=== PATIENT | male | born 1975 | race Caucasian/White ===

== ENCOUNTER 2018-03-14 11:44 | Emergency (ER) | payer OTHER, SELFPAY ==
[2018-03-14 11:45] VITALS: BP 140/100; PULSE 83; RESP 18; TEMP 36.4; O2SAT 97; BMI 28.5
--- NOTE | 2018-03-14 13:04 | ED.VISSUMM ---
- ER Visit Summary Date of Service: 03/14/18 Chief Complaint: Neck pain History of Present Illness: The patient is a 42 M history of arthritis in his neck. Was told by another physician at another facility that he would need cervical spine surgery which she has never had done. States the last week he has had pain base of his right neck radiating to his right arm. Denies any numbness or weakness. No bowel or bladder incontinence. No fever. No falls or trauma. Physical Examination: Well-appearing middle-age male. Vital signs stable afebrile. H EENT exam unremarkable. Trachea midline. No lymphadenopathy. His tenderness and base of the C-spine. Also along his right trapezius muscle consistent with muscle spasm. Both upper extremities neurovascular intact. His 5 5 shipsmith strength. Equal symmetrical radial pulses. Normal touch sensation. I do not see any muscular atrophy. Lungs clear to auscultation bilaterally. Heart regular rhythm no murmur. Abdomen soft nontender. He is moving all 4 extremities. Neurovascularly intact. There is no weakness or loss of sensation to the right upper extremity. He is able to flex and extend his neck. Also rotate the right and left. He has some discomfort but is able to do it. Neurologic exam unremarkable. No weakness or numbness in upper or lower extremities. No cauda equina. Test Results: None Emergency Department Course and Treatment: Patient most likely has underlying degenerative disc disease of the C-spine. He does not need any emergent imaging. He will need follow-up with orthopedic spine and most like an MRI of his neck. Treatment Plan: [place] for pain. Continue anti-inflammatories. Disposition: Discharge Impression: Acute on chronic neck pain with muscle spasm Degenerative disc disease cervical spine This note was generated with Odeo dictation software. It may contain incorrect words, spelling, and punctuation that were not noted in review of the chart prior to signing ED Disposition - Plan for ED Patient: Chief Complaint: Other, Pain/Inj Referrals: Nadeem Mahmood MD [Primary Care Provider] -
--- NOTE | 2018-03-14 13:08 | ED.DCSUM_ITS ---
- ER Visit Summary Date of Service: 03/14/18 Chief Complaint: Neck pain History of Present Illness: The patient is a 42 M history of arthritis in his neck. Was told by another physician at another facility that he would need cervical spine surgery which she has never had done. States the last week he has had pain base of his right neck radiating to his right arm. Denies any numbness or weakness. No bowel or bladder incontinence. No fever. No falls or trauma. Physical Examination: Well-appearing middle-age male. Vital signs stable afebrile. H EENT exam unremarkable. Trachea midline. No lymphadenopathy. His tenderness and base of the C-spine. Also along his right trapezius muscle consistent with muscle spasm. Both upper extremities neurovascular intact. His 5 5 gunner's mate g strength. Equal symmetrical radial pulses. Normal touch sensation. I do not see any muscular atrophy. Lungs clear to auscultation bilaterally. Heart regular rhythm no murmur. Abdomen soft nontender. He is moving all 4 extremities. Neurovascularly intact. There is no weakness or loss of sensation to the right upper extremity. He is able to flex and extend his neck. Also rotate the right and left. He has some discomfort but is able to do it. Neurologic exam unremarkable. No weakness or numbness in upper or lower extremities. No cauda equina. Test Results: None Emergency Department Course and Treatment: Patient most likely has underlying degenerative disc disease of the C-spine. He does not need any emergent imaging. He will need follow-up with orthopedic spine and most like an MRI of his neck. Treatment Plan: [place] for pain. Continue anti-inflammatories. Disposition: Discharge Impression: Acute on chronic neck pain with muscle spasm Degenerative disc disease cervical spine This note was generated with VeriTran dictation software. It may contain incorrect words, spelling, and punctuation that were not noted in review of the chart prior to signing ED Disposition - Plan for ED Patient: Chief Complaint: Other, Pain/Inj Referrals: Nadeem Mahmood MD [Primary Care Provider] -
--- NOTE | 2018-03-14 13:08 | ED.DEP ---
ED Disposition - Plan for ED Patient: Disposition: Home or Assisted Living Chief Complaint: Other, Pain/Inj Prescriptions: Hydrocodone/Acetaminophen [[place] 10-325 Tablet] 1 ea PO Q4H PRN PRN #20 tab PRN Reason: Pain Referrals: Nadeem Mahmood MD [Primary Care Provider] - As soon as possible Additional Instructions: Continue Motrin for pain and inflammation. [place] for more severe pain. Need to follow-up with primary care physician you will need a MRI of your cervical spine and then referred to an orthopedic applications support specialist or a neurosurgeon.
[2018-03-14] MEDS: HYDROcodone Bitartrate/Apap 5/325 Tablet PO (13:10)
--- NOTE | 2018-03-14 13:12 | DCINST.ED_ITS ---
ED Disposition - Plan for ED Patient: Disposition: Home or Assisted Living Chief Complaint: Other, Pain/Inj Prescriptions: Hydrocodone/Acetaminophen [[place] 10-325 Tablet] 1 ea PO Q4H PRN PRN #20 tab PRN Reason: Pain Referrals: Nadeem Mahmood MD [Primary Care Provider] - As soon as possible Additional Instructions: Continue Motrin for pain and inflammation. [place] for more severe pain. Need to follow-up with primary care physician you will need a MRI of your cervical spine and then referred to an orthopedic cannon fire direction specialist or a neurosurgeon.
== END 2018-03-14 13:53 | disposition home or self-care (01) ==
PROVIDERS: Emergency Provider Emergency Medicine
DX: M50.30 Other cervical disc degeneration, unspecified cervical region (principal); M62.838 Other muscle spasm; G89.29 Other chronic pain; Z72.0 Tobacco use
CPT/HCPCS: 99283

== ENCOUNTER 2018-04-26 11:30 | Outpatient (RCR) | payer OTHER, SELFPAY ==
--- NOTE | 2018-04-12 17:23 | HP.PTEVAL_ITS ---
Patient's Visit Information DUSTIN REY Jr. is a 42 year old M referred to Physical Therapy by Cecile Ferrer MD with a diagnosis of CERVICAL RADICULOPATHY. Date of Evaluation: 04/12/18 Physical Therapist: José Miguel Mcadams PT, - Visit Plan Frequency: 2x /Week Duration: 4 Weeks Plan: MODALTIES US/MHP/CP ICTX 15#-22 # X15 MIN ,MANUAL THERAPY STM/MANUAL TRACTION,POSTURAL EX'S,CERVICAL ROM - Subjective Subjective: This 42 y/o male presents to physical therapy with cervical radiculopathy . Patient has had cervical pain for 10 years. Patient has been [place] 6 years , patient care of DR and seen neurosurgeon recommended cercvical surgery. Patient had PT ,tried pain managemnt and chiropractor and had MRI spurs bone,stenosis and HNP in [place]. Patient has right cervical pain with radiculopathy right arm to wrist . Patient has MONTOYA,denies tinnutus,nausea.Symptoms worse woth work ,lifting [place] ,turn cervcial,flexing neck. Symptoms better with rest.Patient sleeping okay.Patient injuried cervical spine lifting 300 #. 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 SOCIAL: maried - Pain Right Neck Pain Intensity (Out of 10): 5 Pain Intensity Range: 10 Left Elbow Pain Intensity (Out of 10): 7 Pain Intensity Range: 10 - Objective POSTURE: rounded shoulders head foward. NEURO: denies parathesia/tingling,reflexes C5-6-7 1/3. AROM: BUE WFL. MMT: 4/5 except 4-/5 wrist flexors /extensors. CERVICAL ROM: flexion mod loss pain,rotation/lateral flexion mod loss,extension mod loss. PALPATION: tender UT/levator - Special Tests C/S Radiculapathy - Left Upper limb tension test: Negative C/S Radiculapathy - Right Upper limb tension test: Negative C/S Radiculapathy - Left Spurlings: Positive C/S Radiculapathy - Right Spurlings: Positive C/S Radiculapathy - Left Cervical distraction: Negative C/S Radiculapathy - Right Cervical distraction: Negative Cervical Sitting: Protrusion - Mechanical Response: No effect Cervical Sitting: Protrusion - Symptoms During Testing: Increases Cervical Sitting: Protrusion - Symptoms After Testing: Worse Cervical Sitting: Retraction - Mechanical Response: No effect Cervical Sitting: Retraction - Symptoms During Testing: Increases Cervical Sitting: Retraction - Symptoms After Testing: Worse Cervical Sitting: Retraction-Extension - Mechanical Response: No effect Cerv Sitting: Retraction-Extension - Symptoms During Testing: Increases Cerv Sitting: Retraction-Extension - Symptoms After Testing: Worse Cervical Sitting: Sidebend Right - Mechanical Response: No effect Cervical Sitting: Sidebend Right - Symptoms During Testing: Increases Cervical Sitting: Sidebend Right - Symptoms After Testing: Worse - Goals Goal 1:: Independant with HEP Goal Time Frame: 4-6 Weeks Goal 2:: Independant with posture for ADL'S Goal Time Frame: 4-6 Weeks Goal 3:: Decrease cervical pain by 50% or greater to improve function with ADL'S Goal Time Frame: 4-6 Weeks Goal 4:: Patient improve cervical ROM to min/mod loss to improve function Goal Time Frame: 4-6 Weeks Goal 5:: Patient to improve ADL'S and job demands with min limitations Goal Time Frame: 4-6 Weeks Goal 6:: Patient to improve neck owsestry by 5 points to improve QOL. Goal Time Frame: 4-6 Weeks - Rehabilitation Potential Physical Therapy Diagnosis: This patient has h/o cervical pain with radicular symptoms affectinh right UE with decrease cervical ROM ,pain,weakness distal wrist along with impairs ADL'S and job demands. Patient has h/o of MRI with stenosis,disc issues ,DDD Rehabilitation Potential: Good - Anticipated Interventions Patient/Client Instruction: Educate patient on: Condition, Plan of Care For the Purpose of:: To decrease pain, To increase ROM, To improve muscle performance and motor function, To increase tolerance to activity/condition/position, To improve ability of physical actions for home/community/work/leisure, To improve health of tissue, To decrease soft tissue restriction, To increase flexibility/ROM, To improve ability to perform tasks related to life management Therapeutic Exercise to Include: Strength training, Postural training, Flexibilty training, Miguel Exercises For the Purpose of:: To decrease pain, To increase ROM, To improve nutrient delivery to tissue, To increase oxygenation perfusion, To improve muscle performance and motor function, To increase tolerance to activity /condition/position, To improve ability of physical actions for home/community/work/leisure, To improve health of tissue, To decrease soft tissue restriction, To increase flexibility/ROM, To improve ability to perform tasks related to life management Manual Therapy Techniques to Include: Mobilization, Soft tissue mobilization Comment: CERVICAL TRACTION For the Purpose of:: To decrease pain, To increase ROM, To improve health of tissue, To decrease soft tissue restriction, To increase flexibility/ROM, To improve ability to perform tasks related to life management IF ES: Yes Cryotherapy (ice pack, ice massage): Yes Thermo therapy (hot pack): Yes Ultrasound (thermal/non thermal): Yes Intermittent cervical traction: Yes - 15-# For the Purpose of:: To decrease pain, To increase ROM, To improve muscle performance and motor function, To improve health of tissue, To decrease soft tissue restriction, To increase flexibility/ROM Thank you for the opportunity to evaluate your patient. For Medicare and Medicare HMO plans, please review the plan of care and approve it. It will need to be FAXED BACK to us at [phone] for Medicare purposes. Please let me know if there are questions or concerns regarding this plan of care. Physician Signature: Date:
--- NOTE | 2018-08-04 08:18 | HP.PTDCNRP_ITS ---
HP - Discharge Summary (1) - Patient Information DUSTIN REY Jr. was seen in my office for initial evaluation on 04/12/18. The following Plan of Care was established for this patient: Initial Frequency: 2x /Week Initial Duration: 4 Weeks - Anticipated Interventions Patient/Client Instruction: Educate patient on: Condition, Plan of Care For the Purpose of:: To decrease pain, To increase ROM, To improve muscle performance and motor function, To increase tolerance to activity/condition/position, To improve ability of physical actions for home/community/work/leisure, To improve health of tissue, To decrease soft tissue restriction, To increase flexibility/ROM, To improve ability to perform tasks related to life management Therapeutic Exercise to Include: Strength training, Postural training, Flexibilty training, Miguel Exercises For the Purpose of:: To decrease pain, To increase ROM, To improve nutrient delivery to tissue, To increase oxygenation perfusion, To improve muscle performance and motor function, To increase tolerance to activity/condition/position, To improve ability of physical actions for home/community/work/leisure, To improve health of tissue, To decrease soft tissue restriction, To increase flexibility/ROM, To improve ability to perform tasks related to life management Manual Therapy Techniques to Include: Mobilization, Soft tissue mobilization Comment: CERVICAL TRACTION For the Purpose of:: To decrease pain, To increase ROM, To improve health of ti ssue, To decrease soft tissue restriction, To increase flexibility/ROM, To improve ability to perform tasks related to life management IF ES: Yes Cryotherapy (ice pack, ice massage): Yes Thermo therapy (hot pack): Yes Ultrasound (thermal/non thermal): Yes Intermittent cervical traction: Yes - # For the Purpose of:: To decrease pain, To increase ROM, To improve muscle performance and motor function, To improve health of tissue, To decrease soft tissue restriction, To increase flexibility/ROM This patient was last seen in our office . Pertinent comments regarding their Physical therapy will appear below: Patient seen for PT for cervical radiculopathy with treatment focusing on ICTX ,modalties ,posture thus is d/c. At this point I will be discontinuing this patient from physical therapy. I would be happy to see this patient again in the future if found appropriate by the physician. Thank you! José Miguel Mcadams, PT, Cert MDT, OCS
== END 2018-04-26 19:00 | disposition home or self-care (01) ==
LOC: PT 11:30
PROVIDERS: Family Provider Family Medicine; PCP Family Medicine; Referring Provider Family Medicine; Visit Provider Family Medicine
DX: M54.12 Radiculopathy, cervical region (principal)
CPT/HCPCS: 97012; 97035; 97162

== ENCOUNTER → 2018-05-21 13:08 | Outpatient (CLI) | payer OTHER, SELFPAY ==
[2018-05-21 15:00] LABS: Absolute Lymphocyte Count 1.81 X10^3/ul (0.83-4.51); Absolute Neutrophil Count 7.9 X10^3/uL (2.0-7.7); Basophil# 0.02 X10^3/uL; Basophil% 0.2 % (0-1); Eosinophils% 1.9 % (0-5); Hematocrit 47.2 % (40-54); Lymphocyte # 1.81 X10^3/ul (4.0); Lymphocyte % 17.3 % (19-41); Mean Corp Hgb Conc 33.9 g/gl (32-36); Mean Corpuscular Hgb 31.6 pg (27.0-32.0); Mean Corpuscular Volume 93.1 fL (80-94); Mean Platelet Vol. 9.1 fl (6.2-12.0); Monocyte# 0.47 X10^3/uL; Monocyte% 4.5 % (0-10); Neutrophil # 7.94 X10^3/uL (2.7-7.7); POSITIVE COUNT NO; POSITIVE DIFFERENTIAL NO; POSITIVE MORPHOLOGY NO; Platelet Count 345 K/mm3 (150-450); RBC Distribution Width CV 12.9 % (11.6-14.6); Red Blood Count 5.07 M/mm3 (4.6-6.2); White Blood Count 10.5 K/mm3 (4.4-11.0)
[2018-05-21 15:12] LABS: ALB/GLOB Ratio 1.2 RATIO (0.9-2.4); AST(SGOT) 12 U/L (15-37); Alanine Aminotransfer ALT/SGPT 20 U/L (16-61); Albumin, Serum 3.8 g/dL (3.2-5.0); Alkaline Phosphatase 69 U/L (45-117); Anion Gap 7 (5-15); BUN 6 mg/dL (7-18); BUN/Creat Ratio 6.9 RATIO (10-20); Calcium,Total 8.9 mg/dL (8.5-10.1); Chloride 106 mmol/L (98-107); Cholesterol 244 mg/dL (200); Creatinine, Serum 0.86 mg/dL (0.70-1.30); EST Glomerular Filtration Rate 102 mL/min (>60); Est Glom Filt Rate - Afr Amer 123 mL/min (>60); Globulin 3.3 g/dL (2.2-4.2); Glucose 85 mg/dL (74-106); High Density Lipoprotein 41 mg/dL; Potassium 3.9 mmol/L (3.5-5.1); Protein, Total 7.1 g/dL (6.4-8.2); Sodium Level 140 mmol/L (136-145); Triglycerides 192 mg/dL; Very Low Density Lipoprotein 38 mg/dL (5-40)
--- OUTSIDE RECORDS SUMMARY | 2018-07-16 12:07 | XMS RPT_ITS ---
:1975 Author Organization OHIP Care Team Providers Name Role Phone BRIELLE ROBERTSON Attending Unavailable PHYSICIAN, NONE Primary Care Unavailable Renaldo Espinoza Attending Unavailable Primay Care Physicia, No Primary Care Unavailable Cecile Ferrer Attending Unavailable Cecile Fererr Referring Unavailable Adryan Ferrernah Primary Care Unavailable Reyna Ferrerh Attending Unavailable Carissa Cecile Primary Care Unavailable PROBLEMS PROBLEMS DATE TYPE CONDITION / CODE ATTENDING STATUS SOURCE 05/21/2018 Unknown I10 - Essential MiCecile damian Active [facility] (primary) Community hypertension / Hospital I10(ICD-10) Repository 04/26/2018 Unknown M54.12 - Miedjimmy, Cecile Active [facility] Radiculopathy, Community cervical region / Hospital M54.12(ICD-10) Repository 03/14/2018 Unknown M50.90 - Cervical Renaldo Espinoza Active [facility] disc disorder, Community unspecified, Hospital unspecified Repository cervical region / M50.90(ICD-10) PROCEDURES PROCEDURES No Procedure Records FoundRESULTS RESULTS CBC W/DIFF, AUTOMATED Collected: 05/21/2018 Status: F Source: [place] 1:10 PM [facility] [place] REPOSITORY TYPE CODE TESTS RESULT OUT OF RANGE REFERENCE UNITS LAB L100.1000 4.4-11.0 K/mm3 Normal WBC 10.5 LAB L100.1200 4.6-6.2 M/mm3 Normal RBC 5.07 LAB L100.1300 13.0-16.5 g/dl Normal HGB 16.0 LAB L100.1400 40-54 % Normal HCT 47.2 LAB L100.1500 80-94 fL Normal MCV 93.1 LAB L100.1600 27.0-32.0 pg Normal MCH 31.6 LAB L100.1700 32-36 g/gl Normal MCHC 33.9 LAB L100.1810 11.6-14.6 % Normal RDW CV 12.9 LAB L100.1820 35.1-43.9 fl Normal RDW SD 43.0 LAB L100.1900 150-450 K/mm3 Normal PLT 345 LAB L100.2000 6.2-12.0 fl Normal MPV 9.1 LAB L100.2100 47-70 % High NEUT% 76.0 LAB L100.2200 19-41 % Low LY% 17.3 LAB L100.2300 0-10 % Normal MONO% 4.5 LAB L100.2400 0-5 % Normal EO% 1.9 LAB L100.2500 0-1 % Normal BASO% 0.2 LAB L100.2550 0.0-0.9 % Normal IM GRAN % 0.100 Result Comment: IG% - Immature Granulocytes (promyelocytes, myelocytes and metamyelocytes) > 1% indicates that a LEFT SHIFT is Present. LAB L100.2620 2.0-7.7 X10 3/uL High Absolute Neut 7.9 LAB L100.2720 0.83-4.51 X10 3/ul Normal Absolute Lymph 1.81 Performed By: #### L100.0100 #### [facility] [address] [place], [address] COMPREHENSIVE METABOLIC Collected: 05/21/2018 Status: F Source: [place] [facility] 1:10 PM [facility] REPOSITORY TYPE CODE TESTS RESULT OUT OF RANGE REFERENCE UNITS LAB L501.0100 74-106 mg/dL Normal GLU 85 Result Comment: Please note revised GLUCOSE reference range effective 2017. LAB L501.1000 7-18 mg/dL Low BUN 6 LAB L501.1100 0.70-1.30 mg/dL Normal CREAT,SERUM 0.86 Result Comment: The validity of the calculated GFR AND GFRAA in patients over 70 years has not been determined. Clinical correlation is essential. LAB L501.1110 >60 mL/min Normal EST GFR 102 Result Comment: Non- GFR Calc LAB L501.1115 >60 mL/min Normal EST GFR - AA 123 Result Comment: GFR Calc LAB L501.1300 10-20 RATIO Low BUN/CRE 6.9 LAB L501.1500 6.4-8.2 g/dL Normal T PROT 7.1 LAB L501.1800 3.2-5.0 g/dL Normal ALB 3.8 LAB L501.1950 2.2-4.2 g/dL Normal GLOB 3.3 LAB L501.2000 0.9-2.4 RATIO Normal A/G 1.2 LAB L501.2200 8.5-10.1 mg/dL Normal CA 8.9 LAB L501.4100 15-37 U/L Low AST 12 LAB L501.4305 45-117 U/L Normal ALK P 69 LAB L501.4405 16-61 U/L Normal ALT 20 LAB L501.4600 0.20-1.00 mg/dL Normal T BILI 0.50 LAB L501.5300 136-145 mmol/L Normal NA 140 LAB L501.5600 3.5-5.1 mmol/L Normal K 3.9 LAB L501.5900 98-107 mmol/L Normal CL 106 LAB L501.6100 21.0-32.0 mmol/L Normal CO2 27.0 LAB L501.6200 5-15 Normal GAP 7 Performed By: #### L500.4050, L500.4100 #### [facility] [address] [place], [place], [address] LIPID PROFILE Collected: 05/21/2018 Status: F Source: [place] 1:10 PM [facility] REPOSITORY TYPE CODE TESTS RESULT OUT OF RANGE REFERENCE UNITS LAB L501.4900 200 mg/dL High CHOL 244 Result Comment: <200 mg/dL Desirable 200-240 mg/dL Borderline >240 mg/dL High Risk LAB L501.5000 mg/dL Normal TRIG 192 Result Comment: The drugs N-Acetylcysteine and Metamizole may falsely depress this assay. Serum Triglycerides Reference Interval Normal <150 mg/dL Borderline high 150 - 199 mg/dL High 200 - 499 mg/dL Very High > or = 500 mg/dL LAB L501.6400 mg/dL Normal HDL 41 Result Comment: The drugs N-Acetylcysteine and Metamizole may falsely depress this assay. Reference Range HDL <40 mg/dL Low HDL Cholesterol HDL >or= 60 mg/dL High HDL Cholesterol LAB L501.6500 0-130 mg/dL High LDL 165 LAB L501.6600 5-40 mg/dL Normal VLDL 38 Performed By: #### L500.4050, L500.4100 #### [facility] [address] [place], [address] INITAL EVALUATION (1) Observed: 04/13/2018 Status: F Source: [place] - [place] 2:19 PM [facility] [place] REPOSITORY [facility] [address] [place] [address] [address] [place], [place] [address] Fax REHABILITATION SERVICES INITIAL EVALUATION MR#: [id number] Acct: [id number] Name: DUSTIN REY Jr. Rep #: [id number] : 1975 42 From: José Miguel Mcadams PT, Cert. MDT, OCS Referring Dr.: Cecile Ferrer MD Status: REG R Insurance: [facility] [id number] SELF PAY INSURANCE Patient's Visit Information DUSTIN REY Jr. is a 42 year old M referred to Physical Therapy by Cecile Ferrer MD with a diagnosis of CERVICAL RADICULOPATHY. Date of Evaluation: 04/12/18 Physical Therapist: José Miguel Mcadams PT, - Visit Plan Frequency: 2x /Week Duration: 4 Weeks Plan: MODALTIES US/MHP/CP ICTX 15#-22 # X15 MIN ,MANUAL THERAPY STM/MANUAL TRACTION,POSTURAL EX'S,CERVICAL ROM - Subjective Subjective: This 42 y/o male presents to physical therapy with cervical radiculopathy . Patient has had cervical pain for 10 years. Patient has been [place] 6 years , patient care of and seen neurosurgeon recommended cercvical surgery. Patient had PT ,tried pain managemnt and chiropractor and had MRI spurs bone,stenosis and HNP in [place]. Patient has right cervical pain with radiculopathy right arm to wrist . Patient has MONTOYA,denies tinnutus,nausea.Symptoms worse woth work ,lifting [place] ,turn cervcial,flexing neck. Symptoms better with rest.Patient sleeping okay.Patient injuried cervical spine lifting 300 #. 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 SOCIAL: maried - Pain Right Neck Pain Intensity (Out of 10): 5 Pain Intensity Range: 10 Left Elbow Pain Intensity (Out of 10): 7 Pain Intensity Range: 10 - Objective POSTURE: rounded shoulders head foward. NEURO: denies parathesia/tingling,reflexes C5-6-7 1/3. AROM: BUE WFL. MMT: 4/5 except 4-/5 wrist flexors /extensors. CERVICAL ROM: flexion mod loss pain,rotation/lateral flexion mod loss,extension mod loss. PALPATION: tender UT/levator - Special Tests C/S Radiculapathy - Left Upper limb tension test: Negative C/S Radiculapathy - Right Upper limb tension test: Negative C/S Radiculapathy - Left Spurlings: Positive C/S Radiculapathy - Right Spurlings: Positive C/S Radiculapathy - Left Cervical distraction: Negative C/S Radiculapathy - Right Cervical distraction: Negative Cervical Sitting: Protrusion - Mechanical Response: No effect Cervical Sitting: Protrusion - Symptoms During Testing: Increases Cervical Sitting: Protrusion - Symptoms After Testing: Worse Cervical Sitting: Retraction - Mechanical Response: No effect Cervical Sitting: Retraction - Symptoms During Testing: Increases Cervical Sitting: Retraction - Symptoms After Testing: Worse Cervical Sitting: Retraction-Extension - Mechanical Response: No effect Cerv Sitting: Retraction-Extension - Symptoms During Testing: Increases Cerv Sitting: Retraction-Extension - Symptoms After Testing: Worse Cervical Sitting: Sidebend Right - Mechanical Response: No effect Cervical Sitting: Sidebend Right - Symptoms During Testing: Increases Cervical Sitting: Sidebend Right - Symptoms After Testing: Worse - Goals Goal 1:: Independant with HEP Goal Time Frame: 4-6 Weeks Goal 2:: Independant with posture for ADL'S Goal Time Frame: 4-6 Weeks Goal 3:: Decrease cervical pain by 50% or greater to improve function with ADL'S Goal Time Frame: 4-6 Weeks Goal 4:: Patient improve cervical ROM to min/mod loss to improve function Goal Time Frame: 4-6 Weeks Goal 5:: Patient to improve ADL'S and job demands with min limitations Goal Time Frame: 4-6 Weeks Goal 6:: Patient to improve neck owsestry by 5 points to improve QOL. Goal Time Frame: 4-6 Weeks - Rehabilitation Potential Physical Therapy Diagnosis: This patient has h/o cervical pain with radicular symptoms affectinh right UE with decrease cervical ROM ,pain,weakness distal wrist along with impairs ADL'S and job demands. Patient has h/o of MRI with stenosis,disc issues ,DDD Rehabilitation Potential: Good - Anticipated Interventions Patient/Client Instruction: Educate patient on: Condition, Plan of Care For the Purpose of:: To decrease pain, To increase ROM, To improve muscle performance and motor function, To increase tolerance to activity/condition/position, To improve ability of physical actions for home/community/work/leisure, To improve health of tissue, To decrease soft tissue restriction, To increase flexibility/ROM, To improve ability to perform tasks related to life management Therapeutic Exercise to Include: Strength training, Postural training, Flexibilty training, Miguel Exercises For the Purpose of:: To decrease pain, To increase ROM, To improve nutrient delivery to tissue, To increase oxygenation perfusion, To improve muscle performance and motor function, To increase tolerance to activity/condition/position, To improve ability of physical actions for home/community/work/leisure, To improve health of tissue, To decrease soft tissue restriction, To increase flexibility/ROM, To improve ability to perform tasks related to life management Manual Therapy Techniques to Include: Mobilization, Soft tissue mobilization Comment: CERVICAL TRACTION For the Purpose of:: To decrease pain, To increase ROM, To improve health of tissue, To decrease soft tissue restriction, To increase flexibility/ROM, To improve ability to perform tasks related to life management IF ES: Yes Cryotherapy (ice pack, ice massage): Yes Thermo therapy (hot pack): Yes Ultrasound (thermal/non thermal): Yes Intermittent cervical traction: Yes - # For the Purpose of:: To decrease pain, To increase ROM, To improve muscle performance and motor function, To improve health of tissue, To decrease soft tissue restriction, To increase flexibility/ROM Thank you for the opportunity to evaluate your patient. For Medicare and Medicare HMO plans, please review the plan of care and approve it. It will need to be FAXED BACK to us at [phone] for Medicare purposes. Please let me know if there are questions or concerns regarding this plan of care. Physician Signature: Date: <Electronically signed by José Miguel Mcadams PT, Cert. T, [facility]> 04/13/18 1419 CC: Cecile Ferrer MD SHYLA Signed For Medicare only, by signing this I certify the plan of care. Physicians Signature Date EMERGENCY DEPARTMENT Observed: 03/14/2018 Status: F Source: [place] SUMMARY 4:57 PM [facility] REPOSITORY [facility] Medical Records Department [address] [place] [address] Emergency Department Summary 03/14/18 1304 MR#: [id number] Acct: [id number] Name: KRISSY,DUSTINNICK Pérez Jr. 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 Was told by another physician at another facility that he would need cervical spine surgery which she has never had done. States the last week he has had pain base of his right neck radiating to his right arm. Denies any numbness or weakness. No bowel or bladder incontinence. No fever. No falls or trauma. Physical Examination: Well-appearing middle-age male. Vital signs stable afebrile. H EENT exam unremarkable. Trachea midline. No lymphadenopathy. His tenderness and base of the C-spine. Also along his right trapezius muscle consistent with muscle spasm. Both upper extremities neurovascular intact. 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 Equal symmetrical radial pulses. Normal touch sensation. I do not see any muscular atrophy. Lungs clear to auscultation bilaterally. Heart regular rhythm no murmur. Abdomen soft nontender. He is moving all 4 extremities. Neurovascularly intact. There is no weakness or loss of sensation to the right upper extremity. He is able to flex and extend his neck. Also rotate the right and left. He has some discomfort but is able to do it. Neurologic exam unremarkable. No weakness or numbness in upper or lower extremities. No cauda equina. Test Results: None Emergency Department Course and Treatment: Patient most likely has underlying degenerative disc disease of the C-spine. He does not need any emergent imaging. He will need follow-up with orthopedic spine and most like an MRI of his neck. Treatment Plan: Mcclusky for pain. Continue anti-inflammatories. Disposition: Discharge Impression: Acute on chronic neck pain with muscle spasm Degenerative disc disease cervical spine This note was generated with [employer] dictation software. It may contain incorrect words, spelling, and punctuation that were not noted in review of the chart prior to signing ED Disposition - Plan for ED Patient: Chief Complaint: Other, Pain/Inj Referrals: Nadeem Mahmood MD [Primary Care Provider] - What to do if you have Problems For any increased pain, shortness of breath, bleeding, nausea or vomiting, chest pain, or any unexpected problems, contact your Primary Care Provider. Call [facility] ([phone]) or report to the closest Emergency Room. Call 911 if necessary. 03/14/18 3171 <Electronically signed by Renaldo Espinoza MD> Date Renaldo Espinoza MD Cosigner Signature (If Indicated): Date CC: No Primary Care Physician DISCHARGE INSTRUCTION Observed: 03/14/2018 Status: F Source: [place] 4:57 PM [facility] REPOSITORY [facility] Medical Records Department [address] [place] [address] Discharge Instruction 03/14/18 1308 MR#: [id number] Acct: [id number] Name: DUSTIN REY Jr. Rep #: [id number] : 1975 42 From: Renaldo Espinoza MD PCP: Care Physician, No Primary Status: DEP ER ED Disposition - Plan for ED Patient: Disposition: Home or Assisted Living Chief Complaint: Other, Pain/Inj Prescriptions: Hydrocodone/Acetaminophen [Mcclusky 10-325 Tablet] 1 ea PO Q4H PRN PRN #20 tab PRN Reason: Pain Referrals: Nadeem Mahmood MD [Primary Care Provider] - As soon as possible Additional Instructions: Continue Motrin for pain and inflammation. Mcclusky for more severe pain. Need to follow-up with primary care physician you will need a MRI of your cervical spine and then referred to an orthopedic family services specialist or a neurosurgeon. What to do if you have Problems For any increased pain, shortness of breath, bleeding, nausea or vomiting, chest pain, or any unexpected problems, contact your Primary Care Provider. Call [facility] ([phone]) or report to the closest Emergency Room. Call 911 if necessary. 03/14/18 4948 <Electronically signed by Renalod Espinoza MD> Date Renaldo Espinoza MD Cosigner Signature (If Indicated): Date CC: No Primary Care Physician CBC Collected: 10/10/2017 Status: F Source: [facility] 7:36 PM [facility] REPOSITORY TYPE CODE TESTS RESULT OUT OF REFERENCE UNITS RANGE LAB WBC(LOINC) 4.60-10.80 10 3/mcL WBC 6.80 LAB RBCCT(LOINC 4.04-6.13 10 6/mcL ) RBC 4.85 LAB HGB(LOINC) 14.0-18.0 G/dL Hgb 15.4 LAB HCT(LOINC) 42.0-52.0 % Hct 44.6 LAB MCV(LOINC) 80.0-94.0 fL MCV 91.9 LAB MCH(LOINC) 27.0-31.2 pg High MCH 31.7 LAB MCHC(LOINC) 31.8-35.4 G/dL MCHC 34.4 LAB RDW(LOINC) 11.5-14.5 % RDW 12.3 LAB PLT(LOINC) 130-400 10 3/mcL Platelet 288 LAB MPV(LOINC) 7.4-10.4 fL Low MPV 7.2 Performed By: #### BMP, GFR, ANEU, ADIFF, CBC #### [facility] [address] [address] .AUTO DIFF Collected: 10/10/2017 Status: F Source: [facility] 7:36 [facility] REPOSITORY TYPE CODE TESTS RESULT OUT OF REFERENCE UNITS RANGE LAB ALICIA(LOINC) 37.0-80.0 % Neutrophil % 48.5 LAB LYM(LOINC) 10.0-50.0 % Lymphocyte % 36.7 LAB MON(LOINC) 1.7-13.0 % Monocyte % 7.4 LAB EO(LOINC) 0.0-7.0 % Eosinophil % 6.7 LAB BAS(LOINC) 0.0-2.5 % Basophil % 0.7 LAB ABLYM(LOIN 0.77-3.85 10 3/mcL C) Lymphocyte, 2.50 Absolute LAB KELSEA(LOINC 0.15-1.00 10 3/mcL ) Monocyte, 0.50 Absolute LAB AEOS(LOINC 0.00-0.40 10 3/mcL ) High Eosinophil, 0.50 Absolute LAB ABAS(LOINC 0.00-0.19 10 3/mcL ) Basophil, 0.00 Absolute Performed By: #### BMP, GFR, ANEU, ADIFF, CBC #### [place] [place] [address] [place], [place] [address] .NEUABS Collected: 10/10/2017 Status: F Source: [facility] 7:36 PM [facility] REPOSITORY TYPE CODE TESTS RESULT OUT OF REFERENCE UNITS RANGE LAB ANEU(LOINC) 2.85-6.16 10 3/mcL Neutrophil, 3.30 Absolute Performed By: #### BMP, GFR, ANEU, ADIFF, CBC #### [facility] [place] [place], [place] [address] .GFR Collected: 10/10/2017 Status: F Source: [facility] 7:36 PM [facility] REPOSITORY TYPE CODE TESTS RESULT OUT OF REFERENCE UNITS RANGE LAB GFRAA(LOINC ml/min/1.73 ) sqm GFR 119 Citizen Of [place] Result Comment: GFR Population mean for , Non- Americans Ages 20-29 = 116 mL/min/1.73 sq.m. Ages 30-39 = 107 mL/min/1.73 sq.m. Ages 40-49 = 99 mL/min/1.73 sq.m. Ages 50-59 = 93 mL/min/1.73 sq.m. Ages 60-69 = 85 mL/min/1.73 sq.m. Ages 70+ = 75 mL/min/1.73 sq.m. Chronic Kidney Disease: Less than 60 mL/min/1.73 square meters End Stage Renal Disease: Less than 15 mL/min/1.73 square meters LAB GFRNO(LOINC) ml/min/1.73sqm GFR Non- >60 Result Comment: GFR Population mean for , Non- Americans Ages 20-29 = 116 mL/min/1.73 sq.m. Ages 30-39 = 107 mL/min/1.73 sq.m. Ages 40-49 = 99 mL/min/1.73 sq.m. Ages 50-59 = 93 mL/min/1.73 sq.m. Ages 60-69 = 85 mL/min/1.73 sq.m. Ages 70+ = 75 mL/min/1.73 sq.m. Chronic Kidney Disease: Less than 60 mL/min/1.73 square meters End Stage Renal Disease: Less than 15 mL/min/1.73 square meters Performed By: #### BMP, GFR, ANEU, ADIFF, CBC #### [facility] [address] [place], [place] [address] BMP Collected: 10/10/2017 Status: F Source: [facility] 7:36 PM [facility] TYPE CODE TESTS RESULT OUT OF REFERENCE UNITS RANGE LAB 1547-9 70-105 mg/dL GLUCOSE 91 LAB NA(LOINC) 136-146 mEq/L Sodium Level 139 LAB K(LOINC) 3.5-5.1 mEq/L Potassium Level 3.9 LAB CL(LOINC) 98-107 mEq/L Chloride 102 LAB CO2(LOINC) 22-29 mEq/L CO2 High 30 LAB EBAL(LOINC mEq/L ) Electrolyte Balance 7.0 LAB BUN(LOINC) 7.0-18.0 mg/dL BUN 7.1 LAB CRE(LOINC) 0.6-1.2 mg/dL Creatinine Lvl (s) 0.8 LAB BC(LOINC) 7-27 ratio BUN/Creatinine 9 Ratio LAB CA(LOINC) 8.4-10.2 mg/dL Calcium Lvl 9.1 Performed By: #### BMP, GFR, ANEU, ADIFF, CBC #### [facility] [address] [place], [place] [address] PROGRESS Observed: 07/21/2017 Status: COMPLETED Source: [place] 2:[address] [facility] REPOSITORY HNO ID: [id number] Author: Brittny Horner Service: (none) Author Type: Nurse Practitioner Type: Progress Notes Filed: 07/21/2017 2:55 PM Note Text: HPI Patient is a reliable 42 year old male here today for a 1 day history of fever, cough, sinus pressure, and congestion. Nothing makes it better or worse. No other concerns at this time. Review of Systems Constitutional: Positive for chills, fever and malaise/fatigue. HENT: Positive for congestion, ear pain and sore throat. Respiratory: Positive for cough. Negative for sputum production, shortness of breath and wheezing. Cardiovascular: Negative. Gastrointestinal: Negative for nausea and vomiting. Musculoskeletal: Negative for myalgias. Neurological: Positive for headaches (sinus pressure). Endo/Heme/Allergies: Negative for environmental allergies. All other systems reviewed and are negative. PAST MEDICAL HISTORY Diagnosis Date - Arrhythmia Saw Dr. Maldonado - Essential hypertension, benign - IBS (irritable bowel syndrome) no colonoscopy yet PAST SURGICAL HISTORY Procedure Laterality Date - past surgical history 2007 right hand surgery after injury with incidental CTR ALLERGIES Clindamycin; Indocin [Indomethacin] MEDICATIONS loratadine-pseudoephedrine 24hr 10-240 mg (CLARITIN-D 24 HOUR) 10-240 mg Tb24 Take 1 tablet by mouth once daily. citalopram hydrobromide 10 mg tablet Take 1 tablet by mouth once daily. naproxen (NAPROSYN) 500 mg tablet Take 1 tablet by mouth twice daily with meals. 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 Vital signs are normal. He appears not dehydrated. He has a sickly appearance. Mildly ill. HENT: Head: Normocephalic and atraumatic. Right Ear: Tympanic membrane, external ear and ear canal normal. Left Ear: Tympanic membrane, external ear and ear canal normal. Nose: Mucosal edema and rhinorrhea present. Right sinus exhibits no maxillary sinus tenderness and no frontal sinus tenderness. Left sinus exhibits no maxillary sinus tenderness and no frontal sinus tenderness. Mouth/Throat: Uvula is midline, oropharynx is clear and moist and mucous membranes are normal. No oropharyngeal exudate, posterior oropharyngeal edema or posterior oropharyngeal erythema. Neck: Neck supple. Cardiovascular: Normal rate, regular rhythm and normal heart sounds. Pulmonary/Chest: Effort normal and breath sounds normal. He has no wheezes. He has no rales. Lymphadenopathy: Head (right side): No submental, no submandibular and no tonsillar adenopathy present. Head (left side): No submental, no submandibular and no tonsillar adenopathy present. He has no cervical adenopathy. Submandibular fullness. Neurological: He is alert and oriented to person, place, and time. Skin: Skin is warm and dry. He is not diaphoretic. Nursing note and vitals reviewed. ASSESSMENT/PLAN: 1. Viral URI with cough - ICD9: 465.9, ICD10: J06.9, B97.89 - Discussed viral etiology and rationale for treatment. - Consider flu like virus- Patient defer Tamiflu - Symptomatic treatment with prn analgesia - Supportive care with fluids and rest - The patient may also use OTC cough and cold meds as needed and warm salt water gargles, throat lozenges and/or OTC throat spray as needed. - Follow up in 3-5 days if symptoms persist or sooner if worsening of symptoms - PREDNISONE 20 MG TABLET Prescription instructions reviewed with patient as applicable. Patient advised if symptoms do not improve or if symptoms worsen sooner, to contact their primary care physician. Potential red flag symptoms discussed with the patient. Reviewed appropriate action plan to take if red flag symptoms occur. Patient agreeable to treatment plan. Brittny Horner CNP CNOV Observed: 07/21/2017 Status: COMPLETED Source: [place] 2:[address] [facility] REPOSITORY Office Visit ([facility]STR) DUSTIN REY ([id number]) 1975 M Date Time Provider Department 07/21/17 2:30 PM BRITTNY HORNER) WSTR During your visit today, we recorded the following information about you: Temperature Pulse Respiration Blood pressure 97.4 degrees 76/minute 16/minute 126/84 Weight 98.9 kg Brittny Horner CNP 07/21/2017 2:55 PM Signed HPI Patient is a reliable 42 year old male here today for a 1 day history of fever, cough, sinus pressure, and congestion. Nothing makes it better or worse. No other concerns at this time. Review of Systems Constitutional: Positive for chills, fever and malaise/fatigue. HENT: Positive for congestion, ear pain and sore throat. Respiratory: Positive for cough. Negative for sputum production, shortness of breath and wheezing. Cardiovascular: Negative. Gastrointestinal: Negative for nausea and vomiting. Musculoskeletal: Negative for myalgias. Neurological: Positive for headaches (sinus pressure). Endo/Heme/Allergies: Negative for environmental allergies. All other systems reviewed and are negative. PAST MEDICAL HISTORY Diagnosis Date - Arrhythmia Saw Dr. Maldonado - Essential hypertension, benign - IBS (irritable bowel syndrome) no colonoscopy yet PAST SURGICAL HISTORY Procedure Laterality Date - past surgical history 2007 right hand surgery after injury with incidental [facility] ALLERGIES Clindamycin; Indocin [Indomethacin] MEDICATIONS loratadine-pseudoephedrine 24hr 10-240 mg (CLARITIN-D 24 HOUR) 10-240 mg Tb24 Take 1 tablet by mouth once daily. citalopram hydrobromide 10 mg tablet Take 1 tablet by mouth once daily. naproxen (NAPROSYN) 500 mg tablet Take 1 tablet by mouth twice daily with meals. 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 Vital signs are normal. He appears not dehydrated. He has a sickly appearance. Mildly ill. HENT: Head: Normocephalic and atraumatic. Right Ear: Tympanic membrane, external ear and ear canal normal. Left Ear: Tympanic membrane, external ear and ear canal normal. Nose: Mucosal edema and rhinorrhea present. Right sinus exhibits no maxillary sinus tenderness and no frontal sinus tenderness. Left sinus exhibits no maxillary sinus tenderness and no frontal sinus tenderness. Mouth/Throat: Uvula is midline, oropharynx is clear and moist and mucous membranes are normal. No oropharyngeal exudate, posterior oropharyngeal edema or posterior oropharyngeal erythema. Neck: Neck supple. Cardiovascular: Normal rate, regular rhythm and normal heart sounds. Pulmonary/Chest: Effort normal and breath sounds normal. He has no wheezes. He has no rales. Lymphadenopathy: Head (right side): No submental, no submandibular and no tonsillar adenopathy present. Head (left side): No submental, no submandibular and no tonsillar adenopathy present. He has no cervical adenopathy. Submandibular fullness. Neurological: He is alert and oriented to person, place, and time. Skin: Skin is warm and dry. He is not diaphoretic. Nursing note and vitals reviewed. ASSESSMENT/PLAN: 1. Viral URI with cough - ICD9: 465.9, ICD10: J06.9, B97.89 - Discussed viral etiology and rationale for treatment. - Consider flu like virus- Patient defer Tamiflu - Symptomatic treatment with prn analgesia - Supportive care with fluids and rest - The patient may also use OTC cough and cold meds as needed and warm salt water gargles, throat lozenges and/or OTC throat spray as needed. - Follow up in 3-5 days if symptoms persist or sooner if worsening of symptoms - PREDNISONE 20 MG TABLET Prescription instructions reviewed with patient as applicable. Patient advised if symptoms do not improve or if symptoms worsen sooner, to contact their primary care physician. Potential red flag symptoms discussed with the patient. Reviewed appropriate action plan to take if red flag symptoms occur. Patient agreeable to treatment plan. PIERRE Roberto CNP 07/21/2017 4:15 PM Signed Addended by: BRITTNY HORNER CNP on: 07/21/2017 04:15 PM Modules accepted: Orders Referring Provider: SELF [[id number]] Allergies As of Date: 07/21/2017 Noted Allergy Reaction CLINDAMYCIN 10/26/2007 4 - Hives INDOCIN (INDOMETHACIN) 02/18/2010 8 - GI Upset Date Reviewed: 07/21/2017 Reviewed by: Patel Keenan Ma - Fully Assessed Reason for Visit: Head Congestion [234] Cmt: chest congestion, cough, fever x this am Primary Visit Diagnosis:Viral URI with cough [J06.9, B97.89] Order(s):predniSONE (DELTASONE) 20 mg tabletTake 1 tablet by mouth twice daily for 5 days.Disp: 10 tabletRfl: 0 Prescriptions as of 07/21/2017 Sig: LORATADINE-PSEUDOEPHEDRINE ER* Take 1 tablet by mouth once d* PREDNISONE 20 MG TABLET Take 1 tablet by mouth twice * CITALOPRAM 10 MG TABLET Take 1 tablet by mouth once d* NAPROXEN 500 MG TABLET Take 1 tablet by mouth twice * Medication notes this encounter CITALOPRAM 10 MG TABLET >> Patel Keenan Ma 07/21/2017 2:36 PM >> MARY DAWSONPATELisael Jul 21, 2017 2:36 PM done NAPROXEN 500 MG TABLET >> Patel Keenan Ma 07/21/2017 2:36 PM >> MARY DAWSONPATEL Tequila Jul 21, 2017 2:36 PM done Problem List As Of Date 07/21/2017 Noted Resolved Injury of face and neck [S19.9XXA, S09.93XA] INVALID FOR* Essential hypertension, benign [I10] INVALID FOR* Shoulder strain [S46.919A] INVALID FOR* Cervical strain [S16.1XXA] INVALID FOR* Back pain [M54.9] INVALID FOR* Ulnar neuropathy of left upper extremity [G56.2*INVALID FOR* Carpal tunnel syndrome, left [G56.02] INVALID FOR* Anxiety [F41.9] INVALID FOR* Prescriptions ordered this encounter Disp Refills Start End PREDNISONE 20 MG TABLET 10 t* 0 07/21/2017 07/21/2017 Route: ORAL Sig: Take 1 tablet by mouth twice daily for 5 days. Disc: Other PREDNISONE 20 MG TABLET 10 t* 0 07/21/2017 07/26/2017 Route: ORAL Sig: Take 1 tablet by mouth twice daily for 5 days. Medications Discontinued During This Encounter predniSONE (DELTASONE) 20 mg tablet 10 t* 0 07/21/2017 07/21/2017 Route: ORAL Sig: Take 1 tablet by mouth twice daily for 5 days. Disc: Other Encounter Status:Closed by BRITTNY HORNER CNP on 07/21/17 CNCO Observed: 07/21/2017 Status: COMPLETED Source: [place] 12:00 AM [facility] REPOSITORY Letter Text [place] [facility] Siri Miner CNP [address] [place], [place] [address] 07/21/2017 Dustin Rey [facility]# [id number] [address] [place] [id number] TO WHOM IT MAY CONCERN: This is to confirm that Dustin Rey had an appointment and was seen at the [facility] in the Department of Urgent Care by Siri Miner CNP on 07/21/2017. Sincerely yours, Siri Miner CNP ALLERGIES ALLERGIES DATE TYPE / CODE NAME / CODE REACTION SEVERITY SOURCE 03/14/2018 Drug indomethacin/[id number] Vomiting Unknown Yandy Allergy/416 2373(RXNORM) Formerly [facility] [id number]([facility] ED CT) Repository 03/14/2018 Drug clindamycin/[id number] Rash Unknown Yandy Allergy/416 794(RXNORM) Formerly [facility] 896814([facility] ED CT) Repository 02/18/2010 DRUG INDOMETHACIN GI UPSET [address] 330131(SN Repository ED CT) 10/26/2007 DRUG CLINDAMYCIN HIVES [address] 621136([facility] Repository ED CT) ENCOUNTERS ENCOUNTERS ADMIT/DISCHARGE ACCOUNT NUMBER ADMITTING ENCOUNTER LOCATION SOURCE CLASS 05/21/2018 [id number] Ambulatory [facility] ding:BFHLAB Repository 04/26/2018 [id number] Ambulatory [facility] ding:PT Repository 03/14/2018/03/14/20 [id number] Emergency [address] ding:ED Repository 10/10/2017/10/11/19 [id number] Emergency BBuilding:[address] Repository 07/21/2017/07/21/19 [id number] Ambulatory [address] Repository PAYERS PAYERS ENCOUNTER GUARANTOR PAYER SUBSCRIBER SOURCE 05/21/2018 DUSTIN Pérez Primary DUSTIN ASHRAFLUCI [address] Insurance:[facility] KRISSY Rousseau: [facility] [id number] Number: Repository [id number]: [phone] [id number] [phone] () Date:8547-14-87VB [address], [place] [address]ZC: 05/21/2018 Secondary NOT GIVENUNK [place] Insurance:SELF PAY [facility]: Effective Repository Date:2018-05-21 04/26/2018 DUSTIN F Primary DUSTIN F [place] ASHRAFAUS Jr[address] Insurance:[employer] KRISSY Jr.: [facility] [id number] Number: Repository [id number]: [phone] [id number] [phone] () Date:2051-79-95KS [address], [place] [address]IP: 04/26/2018 Secondary NOT GIVENUNK [place] Insurance:SELF PAY [facility] Number: Effective Repository Date:2018-04-07 03/14/2018 DUSTIN Primary DUSTIN [place] KRISSY Jr[address] Insurance:[facility] KRISSY Jr.: Community [facility] [id number] Number: Repository [id number]: [phone] [id number] [phone] () Date:5255-50-95PH [address], [place] [address]KK: 03/14/2018 Secondary NOT GIVENUNK Yandy Insurance:SELF PAY [facility] Number: Effective Repository Date:2018-03-14 10/10/2017 DUSTIN F Primary [facility] JRDOB: Insurance[facility] [id number] [facility]: [id number] Repository [address] Effective [address] [place] [address] Date:2017-10-[address] [place] [address]Zqd: [phone] Name:[id number]: [phone] (HP)Tel: [phone] (HP) (WP) [phone] (WP)
== END ==
PROVIDERS: Family Provider Family Medicine; PCP Family Medicine; Visit Provider Family Medicine
DX: I10 Essential (primary) hypertension (principal)
CPT/HCPCS: 36415; 80053; 80061; 85025

== ENCOUNTER → 2018-07-16 10:50 | Outpatient (CLI) | payer OTHER, SELFPAY ==
[2018-07-16 12:33] LABS: AST(SGOT) 10 U/L (15-37); Alanine Aminotransfer ALT/SGPT 23 U/L (16-61); Alkaline Phosphatase 71 U/L (45-117); Bilirubin, Direct 0.17 mg/dL (0.00-0.30); Cholesterol 156 mg/dL (200); Globulin 3.7 g/dL (2.2-4.2); High Density Lipoprotein 37 mg/dL; Protein, Total 7.7 g/dL (6.4-8.2); Triglycerides 196 mg/dL; Very Low Density Lipoprotein 39 mg/dL (5-40)
== END ==
PROVIDERS: Family Provider Family Medicine; PCP Family Medicine; Visit Provider Family Medicine
DX: I10 Essential (primary) hypertension (principal); E78.5 Hyperlipidemia, unspecified
CPT/HCPCS: 36415; 80061; 80076

== ENCOUNTER 2018-09-14 05:11 | Emergency (ER) | payer OTHER, SELFPAY ==
[2018-09-14 05:14] VITALS: BP 154/98; PULSE 78; RESP 16; TEMP 36.6; O2SAT 98; BMI 27.0
--- NOTE | 2018-09-14 05:27 | EKG12_ITS ---
Test Reason : GEN ILLNESS Blood Pressure : / mmHG Vent. Rate : 070 BPM Atrial Rate : 070 BPM P-R Int : 162 ms QRS Dur : 096 ms QT Int : 426 ms P-R-T Axes : 062 054 047 degrees QTc Int : 460 ms Normal sinus rhythm Normal ECG No previous ECGs available Confirmed by COLT HURT, SHAE ([id number]), editor department KHRIS ABDUL ([id number]) on 09/16/2018 12:45:07 PM Referred By: JOÃO Confirmed By:SHAE GREGORY MD
[2018-09-14] MEDS: 0.9% Normal Saline 1,000 ML 999 ML IV (05:38)
--- NOTE | 2018-09-14 05:42 | ED.DCSUM_ITS ---
- ER Visit Summary Date of Service: 09/14/18 Chief Complaint: Shaking History of Present Illness: The patient is a 43 M who woke up shaking tonight. Dates he woke up and began shaking her shoulders and this radiated down his arms and essentially his whole body was shaking. This is never happened before. He denies any chills or fever. He does note that he is not been feeling well over the last 2 weeks complaining of generalized malaise. He complains of decreased appetite. He has had some mild upper abdominal pain. He reports 8-9 pound weight loss. Tonight with his shaking he also felt lightheaded. He does note that he is under a lot of stress. Physical Examination: Afebrile vitals normal Clinically well-appearing not toxic appearing Moist mucous membranes Heart regular rate and rhythm Lungs clear Abdomen soft nontender nondistended Alert Test Results: EKG shows normal sinus rhythm at a rate of 70. Labs notable for potassium 3.2 chloride 108 glucose 113. Hepatic function lipase normal. Emergency Department Course and Treatment: Patient was given IV fluids and underwent the above workup which is unremarkable. Patient advised to follow-up with his primary care physician. Return for new or worsening symptoms. Treatment Plan: [] Disposition: Discharge Impression: Tremor This note was generated with [employer] dictation software. It may contain incorrect words, spelling, and punctuation that were not noted in review of the chart prior to signing ED Disposition - Plan for ED Patient: Referrals: Cecile Ferrer MD [Primary Care Provider] -
[2018-09-14 05:46] LABS: Bedside Glucose 107 mg/dL (70-110)
[2018-09-14 05:46] LABS: Basophil# 0.02 X10^3/uL; Basophil% 0.4 % (0-1); Eosinophils% 3.6 % (0-5); Hematocrit 44.2 % (40-54); Hemoglobin 14.9 g/dl (13.0-16.5); Lymphocyte % 35.7 % (19-41); Mean Corp Hgb Conc 33.7 g/gl (32-36); Mean Corpuscular Hgb 31.5 pg (27.0-32.0); Mean Corpuscular Volume 93.4 fL (80-94); Mean Platelet Vol. 8.7 fl (6.2-12.0); Monocyte# 0.35 X10^3/uL; Monocyte% 6.3 % (0-10); Neutrophil # 3.02 X10^3/uL (2.7-7.7); Neutrophil % 53.8 % (47-70); Platelet Count 295 K/mm3 (150-450); RBC Distribution Width SD 40.7 fl (35.1-43.9); Red Blood Count 4.73 M/mm3 (4.6-6.2); White Blood Count 5.6 K/mm3 (4.4-11.0)
[2018-09-14 05:49] LABS: POSITIVE COUNT NO; POSITIVE DIFFERENTIAL NO; POSITIVE MORPHOLOGY NO
[2018-09-14 06:03] LABS: ALB/GLOB Ratio 1.1 RATIO (0.9-2.4); AST(SGOT) 12 U/L (15-37); Alanine Aminotransfer ALT/SGPT 22 U/L (16-61); Albumin, Serum 3.6 g/dL (3.2-5.0); Alkaline Phosphatase 64 U/L (45-117); Anion Gap 7 (5-15); BUN 3 mg/dL (7-18); Calcium,Total 8.4 mg/dL (8.5-10.1); Chloride 108 mmol/L (98-107); Creatinine, Serum 0.76 mg/dL (0.70-1.30); EST Glomerular Filtration Rate 118 mL/min (>60); Est Glom Filt Rate - Afr Amer 143 mL/min (>60); Estimated Creatinine Clearance 136.14 ml/min; Globulin 3.2 g/dL (2.2-4.2); Glucose 113 mg/dL (74-106); Lipase 107 U/L (73-393); Potassium 3.2 mmol/L (3.5-5.1); Protein, Total 6.8 g/dL (6.4-8.2); Sodium Level 143 mmol/L (136-145)
--- NOTE | 2018-09-14 06:08 | ED.DEP ---
ED Disposition - Plan for ED Patient: Referrals: Cecile Ferrer MD [Primary Care Provider] - Additional Instructions: You were seen today for shaking episodes. Your workup is unremarkable. Blood sugars, kidney function, blood counts fortunately were all okay. I would advise that you follow-up with your primary care physician. You should return for any new or worsening symptoms.
[2018-09-14 06:19] VITALS: BP 129/94; PULSE 73; RESP 18; O2SAT 99
== END 2018-09-14 06:21 | disposition home or self-care (01) ==
LOC: ED 05:30
PROVIDERS: Emergency Provider Emergency Medicine; Family Provider Family Medicine; PCP Family Medicine
DX: R25.1 Tremor, unspecified (principal); R10.10 Upper abdominal pain, unspecified; I10 Essential (primary) hypertension; R42 Dizziness and giddiness; R63.4 Abnormal weight loss; M54.9 Dorsalgia, unspecified; R53.81 Other malaise; Z72.0 Tobacco use
CPT/HCPCS: 80053; 82962; 83690; 85025; 93005; 96360; 99283; J7030; A4216

== ENCOUNTER 2018-09-25 13:57 | Emergency (ER) | payer OTHER, SELFPAY ==
[2018-09-25 13:58] VITALS: BP 143/95; PULSE 68; RESP 17; TEMP 36.7; O2SAT 99; BMI 27.1
--- NOTE | 2018-09-25 15:30 | RAD_ITS ---
STUDY: X-RAY - LUMBAR SPINE REASON FOR EXAM: Male, 43 years old. Fall, low back pain TECHNIQUE: 3 view(s) of the lumbar spine were obtained. COMPARISON: None FINDINGS: Normal lumbar lordosis. There is no substantial scoliosis. There is a normal alignment of the vertebrae. There is multilevel endplate spondylosis of the lumbar vertebrae. Minor loss of disc height at L1-L2 and L5-S1. There is no demonstrated fracture. Mild facet arthropathy at L5-S1. The soft tissue structures are unremarkable. RAD/Lumbar Spine 2 or 3 Views IMPRESSION: No compression fracture. Mild degenerative changes. Electronically Signed: Eladio Torres MD at 16:10 EDT , Service support ,
--- NOTE | 2018-09-25 15:33 | ED.VISSUMM ---
- ER Visit Summary Date of Service: 09/25/18 Chief Complaint: [] Lumbar back pain after fall yesterday History of Present Illness: The patient is a 43 M [] he basically slipped landed on his bottom he had pain to the upper lumbar back since that occurred yesterday he has history of cervical disc disease and bone spurs he is currently under the management of his primary care physician and he is being referred to screening specialist, he indicates he has pain to the lumbar area, no numbness weakness paresthesias no difficulty walking no difficulty with bowel bladder habits presents because of the persistence of the pain Physical Examination: [] Vital signs are within normal range General, no distress resting comfortably HEENT is generally unremarkable The neck is supple no adenopathy Cardiovascular, regular rate and rhythm Lungs, clear bilateral Abdomen, soft nontender He has a vague pain to the upper lumbar region there is no obvious deformity or step-off, his CVAT areas are negative Extremities, no clubbing cyanosis or edema Neurologic, awake alert answering questions appropriately moving all 4 extremities, his gait is normal he is walking well without difficulty he denies bowel or bladder difficulties or perineal anesthesia Test Results: [] Emergency Department Course and Treatment: [] Rays were obtained that showed nothing acute I explained to him the concept of an occult injury, he was treated with Toradol, he will continue Naprosyn, and a follow-up with his outpatient providers in the next 2 days for further management return for change in symptoms Treatment Plan: [] Disposition: [] Home stable Impression: [] Fall with lumbar back pain This note was generated with [employer] dictation software. It may contain incorrect words, spelling, and punctuation that were not noted in review of the chart prior to signing ED Disposition - Plan for ED Patient: Referrals: Cecile Ferrer MD [Primary Care Provider] -
--- NOTE | 2018-09-25 15:35 | ED.DEP ---
ED Disposition - Plan for ED Patient: Instructions: ED Sprain Strain Lumbar Prescriptions: Naproxen [Naprosyn] 500 mg PO BID PRN #20 tab Referrals: Cecile Ferrer MD [Primary Care Provider] -
[2018-09-25] MEDS: Ketorolac 60 MG/2 ML Vial IM (15:52)
[2018-09-25 16:49] VITALS: PULSE 77; RESP 16
--- NOTE | 2018-09-25 16:55 | NURSING ---
PT STATES TO DR. NORTON (WHICH HE RELAYED TO THIS RN) THAT NURSE DID NOTHING TO HELP ME. PT UPSET AT DISCHARGE WHEN HANDED RX FOR NAPROSYN BY THIS RN AND STATES I'LL BE SURE TO TELL DR. MARIE HOW I WAS TREATED.
== END 2018-09-25 16:57 | disposition home or self-care (01) ==
LOC: ED 16:03
PROVIDERS: Emergency Provider Emergency Medicine; Family Provider Family Medicine; PCP Family Medicine
DX: M54.5 Low back pain (principal); W01.0XXA Fall on same level from slipping, tripping and stumbling without subsequent striking against object, initial encounter; Y93.9 Activity, unspecified; Y92.9 Unspecified place or not applicable; Y99.9 Unspecified external cause status; Z79.899 Other long term (current) drug therapy
CPT/HCPCS: 72100; 96372; 99282